=== PATIENT | female | born 1940 ===

== ENCOUNTER 2019-03-05 14:30 | Inpatient (IN) | payer OTHER ==
[~2019-03-05] VITALS: Ht 160 cm; Wt 80.7 kg
[2019-03-05] MEDS ORDERED: LEVOXYL50 MCG PO (16:32)
[2019-03-05] MEDS ORDERED: AVAPRO150 MG PO (16:33)
[2019-03-05] MEDS ORDERED: ASPIR 8181 MG PO (16:33)
[2019-03-13] MEDS ORDERED: ELIQUIS2.5 MG PO (15:51)
[2019-03-13] MEDS ORDERED: PERCOCET 5-3251 EACH PO (15:51)
[2019-03-13] MEDS ORDERED: DUI500 PO (15:51)
== END 2019-03-14 11:17 | DRG 470 ==
LOC: O/R 14:30 → SURH 03-11 05:07 → O/R 03-11 05:07 → SURH 03-11 07:00 → EDBD 03-11 14:30 → SURH 03-14 11:17
PROVIDERS: ADMIT Orthopaedic Surgery
PROC: 0MNP0ZZ Release Left Knee Bursa and Ligament, Open Approach (ICD-10-PCS; 2019-03-11)
PROC: 0SRD0J9 Replacement of Left Knee Joint with Synthetic Substitute, Cemented, Open Approach (ICD-10-PCS; principal; 2019-03-11 07:00)
DX: M17.12 Unilateral primary osteoarthritis, left knee (principal); D62 Acute posthemorrhagic anemia; M22.12 Recurrent subluxation of patella, left knee; I10 Essential (primary) hypertension